=== PATIENT | male | born 2000 | race Hispanic/Latino ===

== ENCOUNTER 2019-01-01 20:29 | Emergency (ER) | payer OTHER ==
[~2019-01-01] VITALS: Ht 182.9 cm; Wt 84.5 kg
[2019-01-01] MEDS ORDERED: OXYCODONE/APAP 5MG/325MG(BULK FOR ED) 1 TABLET PO ONE (22:15)
[2019-01-01] MEDS ORDERED: PERC5TAB12 PO (22:26)
[2019-01-01 22:32] VITALS: BP 126/68
--- NOTE | 2019-01-02 01:33 | REP ---
Clinical: Left ankle injury . Technique: AP, lateral, bilateral oblique views. Findings: Lateral swelling is appreciated and there is a nondisplaced fracture of the distal fibular metaphysis. Impression: Nondisplaced fracture of the distal fibular metaphysis with overlying soft tissue swelling. Electronically Signed by Omar Alvarez MD 01/02/2019 01:25 A
== END 2019-01-01 22:34 | disposition home or self-care (01) ==
LOC: M ED 20:29
DX: S82.832A Other fracture of upper and lower end of left fibula, initial encounter for closed fracture (principal); X50.9XXA Other and unspecified overexertion or strenuous movements or postures, initial encounter; Y92.481 Parking lot as the place of occurrence of the external cause; Y93.89 Activity, other specified